=== PATIENT | female | born 1995 | race African-American/Black ===

== ENCOUNTER 2025-03-23 10:25 | Outpatient (CLI) | payer OTHER, SELFPAY ==
--- NOTE | ~2025-03-23 | US_ITS ---
EXAMINATION: US OB follow up DATE: 03/23/2025 10:45 INDICATION: Encounter for supervision of normal during third trimester TECHNIQUE: Real-time ultrasound of the pelvis was performed. The interpreting radiologist was not pre sent for the study. COMPARISON: None. FINDINGS: There is a single living fetus in vertex presentation. The placenta is posterior and not low-lying. heart rate is 125 beats per minute (bpm). The amniotic fluid index is 19.3 cm, which is normal . (5th%-95%: 7.9-24.9 cm at 35 weeks estimated gestational age). The following biometric data were obtained: BPD: 9.1 cm -> 37 weeks 0 days Head circumference: 33.6 cm -> 38 weeks 3 days Abdominal circumference: 32.8 cm -> 36 weeks 5 days Femur length: 6.8 cm -> 34 weeks 6 days These measurements are concordant. Head circumference to abdominal circumference ratio: 1.02 (normal range 0.92-1.06). Estimated weight: 2950 g (+/-) 443 g or 6 lbs. 8 oz. (+/-) 1 lb. 0 oz. IMPRESSION: 1. Single living fetus in vertex presentation with heart rate of 125 bpm. 2. Normal amniotic fluid index of 19.3 cm. 3. Estimated weight is 68th percentile by Hadlock criteria when 04/21/2025 is used as the estima mayi date of delivery (JUANA). Please correlate with clinical information or earlier ultrasounds for mos t accurate JUANA. Reviewed, dictated and finalized at location A. IMPRESSION: 1. Single living fetus in vertex presentation with heart rate of 125 bpm. 2. Normal amniotic fluid index of 19.3 cm. 3. Estimated weight is 68th percentile by Hadlock criteria when 04/21/2025 is used as the estimated date of delivery (JUANA). Please correlate with clinica l information or earlier ultrasounds for most accurate JUANA.
== END 2025-03-23 10:26 | disposition home or self-care (01) ==
LOC: GOSHIMG 10:25
PROVIDERS: PCP Student in an Organized Health Care Education/Training Program; Visit Provider Student in an Organized Health Care Education/Training Program
DX: Z34.90 Encounter for supervision of normal pregnancy, unspecified, unspecified trimester (principal)
CPT/HCPCS: 76816

== ENCOUNTER 2025-04-06 07:35 | Outpatient (RCR) | payer BC, SELFPAY ==
[2025-03-30 08:33] VITALS: BP 119/88; PULSE 98
--- NOTE | ~2025-04-06 | US_ITS ---
EXAMINATION: US OB limited w BPP DATE: 04/06/2025 8:49 CDT INDICATION: Elevated BMI TECHNIQUE: Real-time transabdominal obstetric ultrasound. FINDINGS: There is a single intrauterine gestation in vertex presentation. The placenta is posterior without p lacenta previa. cardiac activity and movement is noted with a heart rate of 135 beats per minute. Biophysical profile: breathin of 2 movement: 2 of 2 tone: 2 of 2 Amniotic fluid pocket: 2 of 2 Total score: 8 of 8 Amniotic fluid index measures 18.8 cm, within normal limits. IMPRESSION: 1. Single intrauterine gestation in vertex presentation. 2: Total biophysical profile score of 8 out of 8. Reviewed, dictated and finalized at location A.
--- NOTE | ~2025-04-06 | US_ITS ---
EXAMINATION: US OB BPP wo non-stress DATE: 03/30/2025 08:53 INDICATION: Elevated BMI. TECHNIQUE: Real-time pelvic ultrasound was performed. The interpreting radiologist was not present fo r the study. COMPARISON: Ultrasound dated 03/23/2025 FINDINGS: There is a single living fetus in vertex presentation. The placenta is vertex. cardiac activit y and movement are demonstrated. heart rate is 136 beats per minute (bpm). DAVON is normal measuring. Biophysical profile performed by the technologist: breathing (30 sec sustained breathing in 30 minutes): 2 out of 2 movement (3 gross body movements in 30 minutes): 2 out of 2 tone (one episode of rfatlck-lcdmwucep-dbvkqkc limb movement): 2 out of 2 Amniotic fluid pocket (2 cm): 2 out of 2 Total score: 8 out of 8 IMPRESSION: 1. Single living intrauterine in vertex presentation with heart rate of 136 bpm. 2. Normal placenta. 3. Biophysical profile 8 out of 8. Reviewed, dictated and finalized at location A.
--- NOTE | ~2025-04-06 | US_ITS ---
EXAMINATION: US OB BPP wo non-stress DATE: 04/13/2025 16:39 INDICATION: Elevated BMI TECHNIQUE: Real-time pelvic ultrasound was performed. The interpreting radiologist was not present fo r the study. COMPARISON: None. FINDINGS: There is a single living fetus in vertex presentation. The placenta is posterior and not low-lying. heart rate is 138 beats per minute (bpm). Biophysical profile performed by the technologist: breathing (30 sec sustained breathing in 30 minutes): 2 out of 2 movement (3 gross body movements in 30 minutes): 2 out of 2 tone (one episode of xzmlzwk-adzvfsfiv-zujvjyj limb movement): 2 out of 2 Amniotic fluid pocket (2 cm): 2 out of 2 Total score: 8 out of 8 IMPRESSION: 1. Single living fetus in vertex presentation with heart rate of 138 bpm. 2. Biophysical profile 8 out of 8. Reviewed, dictated and finalized at location A.
[2025-04-06 08:40] VITALS: BP 125/87; PULSE 96
[2025-04-13 16:46] VITALS: BP 137/86
== END 2025-04-18 10:47 | disposition home or self-care (01) ==
LOC: ANHOBOP 07:35
PROVIDERS: Visit Provider Student in an Organized Health Care Education/Training Program
DX: O99.213 Obesity complicating pregnancy, third trimester (principal); E66.9 Obesity, unspecified; Z3A.36 36 weeks gestation of pregnancy; Z3A.37 37 weeks gestation of pregnancy; Z3A.38 38 weeks gestation of pregnancy
CPT/HCPCS: 59025; 76815; 76819

== ENCOUNTER 2025-04-14 00:34 | Inpatient (IN) | payer BC, SELFPAY ==
[2025-04-14] VITALS (186 sets, daily range): BP systolic 111–160; BP diastolic 49–112; PULSE 40–125; RESP 16–20; TEMP 36.2–36.9; O2SAT 74–100; BMI 36.6
--- OUTSIDE RECORDS SUMMARY | 2025-04-14 01:06 | XMS_ITS | Patient Health Record ---
Author Organization [facility] Address [address] [place] [address] Care Team Providers Care Dinkey Operator Slate Name Role Phone Autumn Ferrell Primary Care Provider Allergies No Known Allergies Results Component Value Reference Range Notes POC: Rapid Strep Reviewed date:10/27/2024 09:16:38 AM Interpretation: Performing Lab: Notes/Report: POC: Rapid Strep Negative Negative POC: Influenza A & B Reviewed date:10/07/2024 10:00:08 AM Interpretation:NEG Performing Lab: Notes/Report: Influenza A Negative Negative, Indeterminate Influenza B Negative Negative, Indeterminate Reason For Referral No Information Medications Medication SIG (Take, Route, Frequency, Duration) Notes Start Date End Date Status Active Acyclovir Active Vital Signs Heart Rate 86 /min 10/27/2024 Temperature 96.9 degrees Fahrenheit 10/27/2024 Blood pressure diastolic 84 mm Hg 10/27/2024 Oximetry 97 % 10/27/2024 Blood pressure systolic 116 mm Hg 10/27/2024 Encounters Encounter Location Date Provider Diagnosis [facility] [address] [place] [address] 10/07/2024 Autumn [place] BODY ACHES R52 and ACUTE UPPER RESPIRATORY INFECTION J06.9 [facility] [address] [place] [address] 10/27/2024 Autumn [place] SORE THROAT J02.9 ; ACUTE SINUSITIS J01.90 and CERUMEN IMPACTION, RIGHT H61.21 Assessments Encounter Date Diagnosis (ICD Code) Assessment Notes Treatment Notes Treatment Clinical Notes Section Notes 10/07/2024 BODY ACHES (ICD-10 - R52) 10/07/2024 ACUTE UPPER RESPIRATORY INFECTION (ICD-10 - J06.9) Symptoms should gradually improve after day 4-5. If symptoms persist/worsen or you develop new symptoms, please return or follow up with your OB. Encouraged use of Tylenol for fever, salt water gargles/lozenges for sore throat, nasal saline rinses for congestion, adequate hydration, and humidifier at bedside. Patient verbalized understanding. 10/27/2024 SORE THROAT (ICD-10 - J02.9) 10/27/2024 ACUTE SINUSITIS (ICD-10 - J01.90) Discussed symptoms and anticipated improvement of symptoms. Education provided on recommended OTC medications as well as nasal saline rinses. Instructed to return for new or worsening symptoms. All questions and concerns answered. Patient verbalized understanding. 10/27/2024 CERUMEN IMPACTION, RIGHT (ICD-10 - H61.21) cerumen removed without complication. Patient reports improvement in symptoms. Recommend OTC debrox or mineral oil. Avoid insertion of anything in the ear canal including cutips. Plan Of Treatment Future Test Test Name Order Date EBV NUCLEAR ANTIGEN ANTIBODIES, IGG LABC ORP 10/27/2024 EBV VCA IGM 10/27/2024 Insurance Providers Payer Name Payer Address Payer Phone Subscriber Number Group Number Insured Name Patient Relationship to Insured Coverage Start Date Coverage End Date [facility] [address] [place] [phone] [id number] PARDEEP SHARPE Self - patient is the insured
--- OUTSIDE RECORDS SUMMARY | 2025-04-14 01:06 | XMS_ITS | Clinical Summary ---
Author Organization [facility] Address [address] [place] [address] Care Team Providers Care Rivet Tester Name Role Phone Unavailable Primary Care Provider Unavailabl e Source Comments [facility] [employer],non-owned Affiliates and Associated Physician Practices is amultiple site organization consisting of ambulatory clinics and hospital sitesin [place], [place], [place] and [place]. This disclosure is being madepursuant to the Care Everywhere program and may not contain all information available regarding this patient. 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 Gender Identity Not on file Sexual Orientation Not on file Plan of Treatment Health Maintenance Due Date Last Done Comments HIV SCREENING 2012 HEPATITIS C SCREENING 06/27/2015 DTAP/TDAP/TD VACCINES (1 - Tdap) 2016 HEPATITIS B VACCINE (1 of 3 - 19+ 3-dose series) 2016 COVID-19 VACCINE ( - 2023-2 5 season) 2024 HPV VACCINE (1 - 3-dose SCDM series) 2024 DEPRESSION SCREENING 09/10/2024 INFLUENZA VACCINE (#1) 2025 0, 06/26/2018 ZOSTER VACCINE (1 of 2) 2047 HIB VACCINE Aged Out No longer eligi ble based on patient's age to complete this topic MENINGOCOCCAL (Group B) VACCINE SHARED DECISION-MAKING Aged Out No longer eligible based on patient's age to complete this topic MENINGOCOCCAL GROUPS A/C/Y/W VACCINE Aged Out No longer eligible b ased on patient's age to complete this topic PNEUMOCOCCAL VACCINE Aged Out No long er eligible based on patient's age to complete this topic Insurance ANTHEM ANTHEM
--- NOTE | 2025-04-14 01:27 | LDADM ---
This patient, Alison Oden, was admitted to Labor/Delivery/Recovery 107 on 04/14/25 at 00:34. Plans for labor, pain management and were discussed with patient. Patient/family oriented to hospital policies and general routines including ID bracelet, bed and alarms, visiting hours, pain management, procedures, bathroom and other care routines, personal items, smoking policy, room service/diet and guest tray routines, infant security routines, and visiting hours. Patient/Family are encouraged to report perceived risks to care and to ask questions if they do not understand what they are told or what they should do. See OBIX for further documentation.
[2025-04-14] MEDS: LACTATED RINGERS 1,000 ML 125 ML IV CONT ×2 (01:48→06:38)
[2025-04-14 01:58] LABS: Hematocrit 40.9 % (37.0-47.0); Hemoglobin 13.5 g/dL (12.0-15.0); Immature Granulocyte Percent A 0.4 % (0-0.5); Lymphocytes Absolute Auto 2.72 K/mm3 (0.9-3.2); Mean Corpuscular HGB Conc 33.0 g/dl (32-36); Mean Corpuscular Hemoglobin 28.0 pg (26-34); Mean Corpuscular Volume 84.7 fl (80-100); Nucleated Red Blood Cells Absolute Auto 0.000 K/mm3 (0.0-0.012); Nucleated Red Blood Cells Perc 0.0 % (0.0-0.2); Platelet Count Result 318 k/mm3 (150-375); Red Blood Count 4.83 M/mm3 (4.2-5.4); White Blood Count 7.8 K/mm3 (4.5-10.0)
[2025-04-14 02:32] LABS: Syphilis IgG/IgM Antibody Non-Reactive (Nonreactive)
[2025-04-14] MEDS: OXYTOCIN 30 UNITS/NS 500 ML 30 UNITS/500 ML BAG 6 UNITS IV CONT (03:43)
[2025-04-14] MEDS: SODIUM CHLORIDE 0.9% IV 300 ML 600 ML I-UTERINE (08:11)
--- NOTE | 2025-04-14 09:50 | P.PNAN_ITS ---
Anes - Initial Pre Proc Eval Procedure: labor epidural Date/Time: 04/14/25 09:50 Surgeon: Gilberto Webb MD Pre Op Diagnosis: labor pain Pre Op Diagnosis: Leaking Patient Data Age: 29 Gender: F Height: 1.73 m Weight: 109.1 kg Last Vital Signs Temp 36.7 C 04/14/25 08:13 Pulse 101 H 04/14/25 09:46 BP 126/81 04/14/25 09:46 Pulse Ox 99 04/14/25 09:46 O2 Del Method Room Air 04/14/25 01:55 Allergies Allergy/AdvReac Type Severity Reaction Status Date / Time No Known Allergies Allergy Verified 04/14/25 01:27 Home Medications ?Medication ?Instructions ?Recorded ?Confirmed ?Type docosahexaenoic acid 200 mg 200 mg PO DAILY 09/17/24 04/14/25 History capsule ( DHA) acyclovir 400 mg tablet 400 mg PO DAILY #90 tabs 10/20/24 04/14/25 Rx Laboratory Tests 04/14/25 04/14/25 01:34 03:21 WBC 7.8 K/mm3 (4.5-10.0) RBC 4.83 M/mm3 (4.2-5.4) Hgb 13.5 g/dL (12.0-15.0) Hct 40.9 % (37.0-47.0) MCV 84.7 fl (80-100) MCH 28.0 pg (26-34) MCHC 33.0 g/dl (32-36) RDW 13.2 % (11.5-14.5) Plt Count 318 k/mm3 (150-375) MPV 9.6 fl (7.4-10.4) Immature Gran % (Auto) 0.4 % (0-0.5) Neut % (Auto) 55.8 % (45.5-73.1) Lymph % (Auto) 35.0 % (18.3-44.2) [place] % (Auto) 7.2 % (2.6-8.5) Eos % (Auto) 1.2 % (0-4.4) Baso % (Auto) 0.4 % (0.2-1.2) Lymph # (Auto) 2.72 K/mm3 (0.9-3.2) [place] # (Auto) 0.6 K/mm3 (0.1-0.6) Eos # (Auto) 0.1 K/mm3 (0-0.3) Baso # (Auto) 0.0 K/mm3 (0.0-0.1) Abs Immat Gran (auto) 0.03 K/mm3 (0.00-0.031) Absolute Neuts (auto) 4.3 K/mm3 (1.3-6.7) Absolute Nucleated RBC 0.000 K/mm3 (0.0-0.012) Nucleated RBC % 0.0 % (0.0-0.2) Syphilis IgG/IgM Ab Non-reactive (Nonreactive) Blood Type Cancelled O Positive Antibody Screen Cancelled Negative Patient hx anesthesia problems: none Family hx anesthesia problems: none Results Review: All pre-operative results and documents have been reviewed as part of the pre- operative evaluation. 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 Surgical History Surgical History History of tooth extraction History of wisdom tooth extraction Family History Family History Grandparent Liver cancer Bladder cancer Lung cancer maternal grandfather Father Hypertension Mother Thyroid tumor, benign Social History Social History Social History: Single Smoking status: Never smoker Second hand tobacco smoke exposure: No Alcohol intake: former Alcohol use details: socially 2-3 month Substance use: never Substance use type: does not use Do You Feel Safe in your Home?: Yes Lack of Transportation: No Lack of Food: Never True Current Housing: I Have Housing Concerned About Future Housing: No Difficulty Paying Gas/Electric Bills: No Difficulty Paying for Meds: No Currently Unemployed: No Education: Master's Degree or Higher Difficulty w/ Childcare or Family Care: No Living arrangements: with family Additional living arrangements comments: parents Occupation/Education: occupation Additional occupation/education comments: [employer] Gender identity (if verbalized by the patient): Female Sexual Orientation (if Verbalized by the Patient): Straight or Heterosexual Spiritual care concerns: No Anes - Eval Final PreProcedure Day of Procedure 04/14/25 09:50 Patient weight: obese ASA classification: II Anesthetic plan: proceed Anesthesia type and monitoring: regional epidural and standard monitoring Results Review: All pre-operative results and documents have been reviewed as part of the pre- operative evaluation. Informed Consent: The patient's anesthetic plan and its attendant risks and benefits were discussed with the patient/family/POA. Questions were solicited and answers provided to the satisfaction of the patient/family/POA.
--- NOTE | 2025-04-14 11:37 | WPDHPUPDATE1 ---
History and Physical Update Update Date/Time: 04/14/25 11:37 29 yo at 39w0d who presents after rupture of membranes. History and Physical has been reviewed, including an updated exam of the patient. There are NO changes in the patient's condition. Risks, benefits, and alternatives have been discussed and questions answered. Patient agrees to proceed with procedure. A/P: admit to L&D routine admission orders Rh positive GBS neg h/o HSV, on suppression, asymptomatic obesity, compliant with testing continuous EFM epidural PRN will augment with pitocin PRN
--- NOTE | 2025-04-14 12:10 | PM.OBPRVD ---
OB - Vaginal Delivery Note Procedure Delivery date: 04/14/25 Induction method: None Delivery augmentation: Pitocin Delivery monitor: External FHT and Internal Uterine Route of delivery: Episiotomy description: None Laceration Description: Perineal - 2nd Degree Delivery repair: vicryl Specimen: No Quantitative Blood Loss (ml): 100 Anesthesia type: Epidural Disposition: Floor Complications: No immediate complications Narrative: Patient pushed for a spontaneous vaginal delivery. The fetus was delivered atraumatically and placed on the maternal abdomen. The cord was clamped and cut after 1 minute of life. The cord was double clamped and cut and a segment of cord was collected for cord gases. Cord blood was collected for blood type and Coomb's testing. The placenta delivered spontaneously and was noted to be intact. The perineum was inspected and a 2nd degree perineal laceration was noted. The laceration was repaired with 3-0 vicryl in a running fashion. The fundus was noted to be firm and good hemostasis was noted. The mom and infant were stable in the delivery room. Baby Date of : 04/14/25 Time of : 11:55 Gestational Age by Date: 39 Infant gender: Female presentation: vertex position: Left Occiput Anterior Placenta delivery description: Spontaneous Cord Vessel Description: 3 Vessels score one minute: 9 score five minutes: 9
[2025-04-14] MEDS: OXYTOCIN 30 UNITS/NS 500 ML 30 UNITS/500 ML BAG 125 UNITS IV CONT (12:37)
[2025-04-14] MEDS: BENZOCAINE 20% AER SPR (*SP) 56 GM CAN 1 SPRAY TOPICAL (15:02)
[2025-04-14] MEDS: WITCH HAZEL 40 PADS 1 PAD TOPICAL (15:02)
--- NOTE | 2025-04-14 16:30 | PC.NURSE ---
Introductions were made, then consulted with patient to assess needs related to . Discussed with mother her?plans to feed?her and the?experience so far. Baby has attempted to breastfeed a few times but was too sleepy. Mom knows that she should attempt to feed every 30 minutes to an hour until she has a successful feeding. Help is available and she may use her call light to request assistance. She knows that baby should not go past 6 hours of life without a good feeding. She is open to supplementation if needed. She has bilateral nipple piercing and she has removed her jewelry for . Resources provided for inpatient and outpatient services with the feeding sheet, mom/baby guide and name written on the communication board. Mother voiced understanding of information and will call if there is a request for assistance. Reported to the Primary RN.
--- NOTE | 2025-04-14 17:15 | PC.NURSE ---
Patient requested feeding assistance. Baby is swaddled and being held by grandma. We placed her in the crib and unwrapped her. She stirred and opened her eyes. We attempted in cross cradle hold first. Mom was shown how to position baby and attempt to elicit a wide gape. Baby rooted and opened her mouth a few times but never achieved a latch. After several minutes of trying, we moved baby to football position and mom does a great job holding her breast and supporting baby. We were still unable to latch, though baby did give a little effort to root and search for the nipple. After 10 minutes of trying, mom is encouraged to take a break and try again soon. Mom is agreeable and we also reviewed supplementing and pumping for stimulation if baby doesn't breastfeed. Mom plans to do some bottle feeding in addition to . Encouraged patient to call out through the night for additional help. Patient verbalized understanding of the information shared. Primary RN updated.
[2025-04-15 02:30] VITALS: BP 119/72; PULSE 75; RESP 18; TEMP 36.3; O2SAT 97
[2025-04-15 05:45] LABS: Hematocrit 41.6 % (37.0-47.0); Hemoglobin 13.0 g/dL (12.0-15.0)
--- NOTE | 2025-04-15 07:45 | P.PNOB_ITS ---
OB - PN: Subj Subjective Date/time seen: 04/15/25 07:45 Patient comments: no complaints, pain well controlled and tolerating diet [facility] feeding status: exclusively breast feeding Narrative: patient doing well this AM. No complaints. Pain is well controlled. She reports minimal bleeding. She is ambulating and voiding without difficulty. She is tolerating PO. She denies N/V, fever, chills. OB - PN: Obj Data Labs 04/15/25 04:42 Labs: Laboratory Results - last 24 hr 04/15/25 04:42 Hgb 13.0 Hct 41.6 OB - PN A/P Plan day: 1 Plan: routine care Comments: patient doing well H/H stable continue routine care Time Spent With Patient Time: Total time spent is greater than 50% in coordination of care (as documented) at patient's floor/unit and/or counseling patient: Time with patient: less than 15 minutes Review of Systems 2 Review of Systems: All systems reviewed & are unremarkable except as noted in HPI and below Exam 2 Const: General: comfortable and no acute distress Resp: Effort & Inspection: normal respiratory effort Cardio: Rate: regular rate GI: GI Palp: Yes Soft to palpation and No Tenderness to palpation present (GI) Auscultation: normal bowel sounds Other: fundus firm and below umbilicus. Psych: Affect: normal affect
--- NOTE | 2025-04-15 07:59 | WPDANLDPN2 ---
Anes-Prog Note L&D Date/Time: 04/15/25 07:59 Neuro status: Neuro function grossly intact. Cardiovascular status: normal Respiratory status: normal Airway patency: baseline Mental status: baseline Post-Op hydration status: normal Vital Signs: Last Vital Signs Temp 36.3 C L 04/15/25 02:30 Pulse 75 04/15/25 02:30 Resp 18 04/15/25 02:30 BP 119/72 04/15/25 02:30 Pulse Ox 97 04/15/25 02:30 O2 Del Method Room Air 04/14/25 20:50 Pain score (VAS): 0 I/O: Intake & Output 04/14/25 04/14/25 04/15/25 15:59 23:59 07:59 Intake Total 500 501 Output Total 300 Balance 200 501 Post-procedural complaints: none Patient feedback: Patient satisfied with anesthetic care.
[2025-04-15] MEDS: IBUPROFEN 600 MG TABLET PO (08:13)
[2025-04-15] MEDS: MULTIVIT/MIN/PREN/FOL AC/IRON TABLET 1 TAB PO (08:13)
[2025-04-15] MEDS: DOCUSATE SODIUM 100 MG CAPSULE PO ×2 (08:13→20:52)
[2025-04-15] MEDS: ACYCLOVIR 400 MG TABLET PO (08:14)
[2025-04-15 08:30] VITALS: BP 114/71; PULSE 79; RESP 16; TEMP 36.4; O2SAT 96
[2025-04-15 15:25] VITALS: BP 111/71; PULSE 82; RESP 16; TEMP 36.4; O2SAT 99
--- NOTE | 2025-04-15 17:03 | PC.NURSE ---
1145. Observed mother latching to the [right] breast in [cross cradle] position. [was not] able to maintain an appropriate latch. Mother [declines] nipple pain/discomfort [throughout feeding]. was able to latch but too sleepy to nurse. Mom encouraged to call for help if she is unable to get infant to latch. Reviewed using the blue feeding sheet to record time and duration of feeding. Mother voiced understanding of the education shared, to call for assistance if the does not latch or if there is discomfort with . name/number on communication board. Reported to the Primary RN.?
[2025-04-15 20:30] VITALS: BP 125/82; PULSE 91; RESP 18; TEMP 36.5; O2SAT 97
[2025-04-16] MEDS: ACYCLOVIR 400 MG TABLET PO (07:10)
[2025-04-16] MEDS: MULTIVIT/MIN/PREN/FOL AC/IRON TABLET 1 TAB PO (07:10)
--- NOTE | 2025-04-16 07:42 | PM.OBDSVD ---
DS: Admitting Diagnosis Discharge Date 04/16/25 Admitting Diagnosis intrauterine at term spontaneous rupture of membranes DS: Discharge Diagnosis Discharge Diagnosis (1) Normal vaginal delivery: Code(s): O80 - Encounter for full-term uncomplicated delivery Status: Acute OB - DS: Summary Hospital Course Hospital Course: 29-year-old who presented at 39 weeks after spontaneous rupture of membranes. Patient progressed to complete dilation. She had an uncomplicated vaginal delivery. Her course was uncomplicated and she was discharged home on day 2 OB Procedures : None OB Procedures Intrapartum: Spontaneous Vag Delivery OB Procedures: : None Peripartum Data Laceration Description: Perineal - 2nd Degree Episiotomy description: None Status at Discharge Functional status at discharge: independent ambulation Overall status at discharge: patient is back to baseline Time Spent with Patient Time attestation: Total time spent providing and/or coordinating discharge services: Time spent: Less than 30 minutes Exam Const: General: comfortable and no acute distress Resp: Effort & Inspection: normal respiratory effort Auscultation: clear to auscultation bilaterally Cardio: Rate: regular rate GI: GI Palp: Yes Soft to palpation Auscultation: normal bowel sounds Other: Fundus firm below umbilicus Psych: Appearance: grossly normal Mental Status: mental status grossly normal Affect: normal affect Discharge Plan Discharge Discharging Clinician: Hi Kapoor Patient Disposition: Home Activity: may shower, as tolerated and pelvic rest Diet: regular Patient Instructions: Antibiotic Form, Perineal Tear with Delivery (DC), Vaginal Delivery (DC) Patient Language: [place] Stand Alone Forms: General Discharge Information Follow-up/Referrals: Hi Kapoor MD [Physician] - 4 Weeks Discharge Medications: New ibuprofen 600 mg tablet 600 mg PO Q6H PRN (Reason: pain) Qty: 30 0RF acetaminophen 500 mg tablet 500 mg PO Q6H PRN (Reason: pain) Qty: 30 0RF Continued DHA 200 mg capsule 200 mg PO DAILY acyclovir 400 mg tablet 400 mg PO DAILY Qty: 90 0RF Date of admission: 04/14/25 00:34 Primary Care Provider: UNKNOWN,DOCTOR Admitting Provider: Gilberto Webb Attending physician on admission: Gilberto Webb Condition: Stable
[2025-04-16 08:20] VITALS: BP 129/88; PULSE 81; RESP 16; TEMP 36.6; O2SAT 97
[2025-04-18 11:47] VITALS: BP 130/88; PULSE 66; RESP 18; TEMP 37; O2SAT 98
== END 2025-04-16 13:23 | disposition home or self-care (01) | DRG 807 ==
LOC: ANHOB2 04-16 07:45 → ANHLDR 04-17 09:11
PROVIDERS: Admitting Provider Obstetrics & Gynecology; Visit Provider Student in an Organized Health Care Education/Training Program
DX: O98.52 Other viral diseases complicating childbirth (principal); Z37.0 Single live birth; Z3A.39 39 weeks gestation of pregnancy; O70.1 Second degree perineal laceration during delivery; B00.9 Herpesviral infection, unspecified
CPT/HCPCS: 36415; 85014; 85018; 85025; 86593; 86850; 86900; 86901; A9270; J2590; J2795; J7030; J7120